=== PATIENT | female | born 1995 | race Caucasian/White ===

== ENCOUNTER 2018-02-27 22:09 | Emergency (ER) | payer SELFPAY ==
[2018-02-27 23:09] VITALS: BP 107/63
[2018-02-27 23:46] LABS: APPEARANCE,URINE CLEAR; BILIRUBIN,URINE NEGATIVE (NEGATIVE); COLOR,URINE STRAW; GLUCOSE, URINE NEGATIVE (NEGATIVE); KETONES,URINE TRACE mg/dL (NEGATIVE); LEUKOCYTE ESTERASE,URINE NEGATIVE (NEGATIVE); NITRITE,URINE NEGATIVE (NEGATIVE); PROTEIN,URINE NEGATIVE (NEGATIVE); URINE SPECIFIC GRAVITY 1.001; UROBILINOGEN,URINE NEGATIVE mg/dL (<2.0)
--- NOTE | 2018-02-28 00:11 | ER Document Report ---
ED General - General Chief Complaint: Flank Pain Stated Complaint: URINARY PAIN Time Seen by Provider: 02/27/18 23:22 Mode of Arrival: Ambulatory Information source: Patient Notes: 22-year-old female patient presents with complaint of right flank pain that started this afternoon. Patient denies any urinary symptoms. Patient denies any nausea, vomiting, diarrhea, vaginal bleeding/abnormal discharge or fever. Patient denies taking any medication for this. Patient reports that she is approximately 19 weeks and is seen by [facility]. Patient reports that she does have a history of a kidney infection previously and patient states that this feels similar. Patient denies any other past medical or surgical history. Patient denies any history of kidney stones. TRAVEL OUTSIDE OF THE [place] IN LAST 30 DAYS: No - Related Data Allergies/Adverse Reactions: No Known Allergies Allergy (Unverified 02/28/18 00:41) Past Medical History - General Information source: Patient - Social History Smoking Status: Never Smoker Cigarette use (# per day): No Chew tobacco use (# tins/day): No Smoking Education Provided: No Frequency of alcohol use: None Drug Abuse: None Family History: Reviewed & Not Pertinent Review of Systems - Review of Systems Constitutional: No symptoms reported EENT: No symptoms reported Cardiovascular: No symptoms reported Respiratory: No symptoms reported Gastrointestinal: No symptoms reported Genitourinary: See HPI Female Genitourinary: No symptoms reported Musculoskeletal: No symptoms reported Skin: No symptoms reported Hematologic/Lymphatic: No symptoms reported Neurological/Psychological: No symptoms reported Physical Exam - Vital signs Vitals: Temp Pulse Resp BP Pulse Ox 98.2 F 90 18 107/63 100 02/27/18 23:07 02/27/18 23:07 02/27/18 23:07 02/27/18 23:07 02/27/18 23:07 - Notes Notes: PHYSICAL EXAMINATION: GENERAL: Well-appearing, well-nourished and in no acute distress. HEAD: Atraumatic, normocephalic. EYES: Pupils equal round and reactive to light, extraocular movements intact, conjunctiva are normal. ENT: Nares patent, oropharynx clear without exudates. Moist mucous membranes. NECK: Normal range of motion, supple without lymphadenopathy LUNGS: Breath sounds clear to auscultation bilaterally and equal. No wheezes rales or rhonchi. HEART: Regular rate and rhythm without murmurs ABDOMEN: Soft, nontender, nondistended abdomen. No TTP noted. No guarding, no rebound. No masses appreciated. Female : No CVA tenderness. Musculoskeletal: Normal range of motion, no pitting or edema. No cyanosis. NEUROLOGICAL: Cranial nerves grossly intact. Normal speech, normal gait. Normal sensory, motor exams PSYCH: Normal mood, normal affect. SKIN: Warm, Dry, normal turgor, no rashes or lesions noted. Course - Re-evaluation Re-evalutation: 22-year-old otherwise healthy female reports that she is 19 weeks comes in with complaints of right flank pain that started today. Patient denies any urinary frequency, urgency or dysuria. Patient denies any nausea, vomiting, diarrhea or fever. Urinalysis is negative for any infection. Patient has no CVA tenderness. Patient is smiling and appears well during my exam. Patient is asking that we do heart tones to evaluate baby. heart tones are normal. Patient will be discharged home with instructions to drink additional fluids and follow-up with her OB. Patient reports that she has an appointment already set up for 03/10/18 with [facility]. Patient given ED return precautions to include development of pain over either of the flank areas, vomiting or development of fever. - Vital Signs Vital signs: Temp Pulse Resp BP Pulse Ox 98.2 F 90 18 107/63 100 02/27/18 23:07 02/27/18 23:07 02/27/18 23:07 02/27/18 23:07 02/27/18 23:07 - Laboratory Laboratory results interpreted by me: 02/27/18 22:38 Urine Ketones TRACE H Urine HCG, Qual POSITIVE H Discharge - Discharge Clinical Impression: Flank pain Condition: Stable Disposition: HOME, SELF-CARE Additional Instructions: Flank Pain We weren't able to prove an exact cause for your flank pain. Pain in the flank can be caused by a muscle strain, spasm or round ligament pain. Sometimes a kidney stone causes pain, but can't be found on our tests. Infection in the kidney should be evident on a urine test. At this time, there's no evidence of a dangerous condition, and it seems safe for you to be at home. If the pain goes away and does not come back, no further testing will be needed. If pain persists, or becomes more severe, we may need to repeat some tests or order additional new testing. Blood in the urine, urgency to urinate frequently, and pain that radiates to the groin can indicate a kidney stone. Fever may mean that the pain is due to infection, either of the kidney or the colon (diverticulitis). Call the doctor or return if you have pain that is spreading or becoming more severe, pain that does not resolve with time, fever, or any other new symptoms. You may take acetaminophen as needed for pain during . Please keep your follow up appointment with your OBGYN. Call your OBGYN in the morning and let them know that you were here if your pain does not resolve on its own. Referrals: [facility] [Provider Group] - Follow up as needed
== END 2018-02-28 00:03 | disposition home or self-care (01) ==
LOC: ER 22:09
DX: O26.892 Other specified pregnancy related conditions, second trimester (principal); R10.9 Unspecified abdominal pain; R30.9 Painful micturition, unspecified; Z3A.19 19 weeks gestation of pregnancy
CPT/HCPCS: 81001; 81025; 99284